=== PATIENT | male | born 1945 | race Caucasian/White ===

== ENCOUNTER 2021-10-19 18:16 | Emergency (ER) | payer OTHER ==
[~2021-10-19] VITALS: Ht 182.9 cm; Wt 104.3 kg
[~2021-10-19 18:16] MED LIST: AMOX1TAB12 PO; COZAAR25 MG; DICLOFENAC SODI50 MG PO; FORTAMET1000 MG; LANTUS SOL100 UNIT/1
== END 2021-10-19 22:35 | disposition home or self-care (01) ==
LOC: ER 18:16
DX: U07.1 COVID-19 (principal); I10 Essential (primary) hypertension

== ENCOUNTER → 2023-06-19 | Emergency (ER) | payer OTHER ==
[~2023-06-19] VITALS: Ht 182.9 cm; Wt 113.4 kg
[2023-06-19 10:20] LABS: HEMATOCRIT 33.6 % (39.0-48.0); HEMOGLOBIN 11.4 g/dL (13-16.00); MEAN CELL VOLUME 93.9 fL (80.0-100.00); MEAN CORPUSCULAR HEMOGLOBIN 31.9 pg (27.00-32.0); MEAN CORPUSCULAR HGB CONC 33.9 g/dl (32.0-36.0); PLATELET COUNT 245 K/uL (150-450); RED BLOOD COUNT 3.58 M/uL (4.00-6.00); RED CELL DISTRIBUTION WIDTH 13.3 % (11.5-14.5)
[2023-06-19 10:47] LABS: PH,URINE 5.5 (5.0-8.0); URINE APPEARANCE Clear; URINE BILIRRUBIN Negative (NEGATIVE); URINE BLOOD Small; URINE COLOR Yellow; URINE LEUKOCYTE Small; URINE NITRATE Negative
[2023-06-19 10:52] LABS: URINE BACTERIA 122.1 uL (0.0-1933); URINE EPITHELIAL CELLS 15.6 uL (0.0-38.8); URINE RBC 3.3 uL (0.0-20.8); URINE WBC 452.9 uL (0.0-23.2)
[2023-06-19 11:00] LABS: CALCIUM 9.6 mg/dL (8.5-10.1); CREATININE SERUM 1.75 mg/dL (0.70-1.30); GFR 37.79; POTASSIUM 4.71 mEq/L (3.5-5.1)
[2023-06-19 11:16] LABS: URINE GLUCOSE >=1000 MG/DL (NEGATIVE); URINE PROTEIN 300 (NEGATIVE)
== END | disposition left against medical advice (07) ==
LOC: ER
PROVIDERS: Emergency Medicine
DX: N39.0 Urinary tract infection, site not specified (principal); E11.65 Type 2 diabetes mellitus with hyperglycemia; I10 Essential (primary) hypertension; Z79.4 Long term (current) use of insulin
CPT/HCPCS: 36415; 96365; 99284; J1956

== ENCOUNTER 2024-12-11 09:47 | Emergency (ER) | payer OTHER ==
[~2024-12-11] VITALS: Ht 182.9 cm; Wt 68.0 kg
[~2024-12-11 09:47] MED LIST changes: +CANDESARTAN CIL32 MG; +TAMS0.4C; +TOPROL XL25 M1
[2024-12-11] MEDS ORDERED: KETOROLAC TROMETHAMINE 30 MG VIAL IM STA (11:17)
[2024-12-11] MEDS ORDERED: KETOROLAC TROMETHAMINE 30 MG VIAL ONE (11:20)
== END 2024-12-11 12:50 | disposition home or self-care (01) ==
LOC: ER 10:06
DX: G89.11 Acute pain due to trauma (principal); M25.561 Pain in right knee
CPT/HCPCS: 73560; 96372; 99283; J1885